=== PATIENT | female | born 1990 | race American Indian/Alaskan Native ===

== ENCOUNTER 2020-08-24 07:17 | Day surgery (SDC) | payer MEDICAID ==
--- NOTE | 2020-08-19 12:55 | History and Physical Report ---
History of Present Illness Date of examination: 08/24/20 Date of admission: 08/24/20 Chief complaint: desiring permanent sterilization History of present illness: 30 yo A4 c/b hx dysplasia (s/p cyrosurgery in 2018 and LEEPin 2019) and intermittent pelvic pain presenting for permanent sterilization. Completed childbearing and happy with current family size. Discussed non-permanent forms of contraception and declines. Past History Past Medical History: no pertinent history Past Surgical History: D&C (x4), other (cyrotherapy 2018, LEEP 2019) [employer] History: abnormal PAP smear (most recently negative) Family/Genetic History: none Social history: no significant social history - Obstetrical History : 6 Para: 2 Hx # Term Pregnancies: 2 Induced : 4 Number of Living Children: 2 Medications and Allergies Allergies Allergy/AdvReac Type Severity Reaction Status Date / Time No Known Allergies Allergy Unverified 08/19/20 11:56 Home Medications Medication Instructions Recorded Confirmed Last Taken Type No Known Home Medications [No 08/19/20 08/19/20 Unknown History Reported Home Medications] Review of Systems All systems: negative (expect HPI) - Physical Exam Cardiovascular: Regular rate Lungs: Positive: Clear to auscultation, Normal air movement Abdomen: Positive: normal appearance Results All other labs normal. 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 Defer management of patient's pelvic pain until after BTL. Patient expressed understanding.
[~2020-08-24 07:17] MED LIST: LACTATED RINGERS 1,000 ML IV SCH
[2020-08-24 08:42] LABS: Basophils % (Auto) 0.6 % (0.0-1.8); Eosinophils # (Auto) 0.1 K/mm3 (0.0-0.4); Eosinophils % (Auto) 2.2 % (0.0-4.3); Hematocrit 35.3 % (30.3-42.9); Hemoglobin 11.8 gm/dl (10.1-14.3); Lymphocytes # (Auto) 1.6 K/mm3 (1.2-5.4); Lymphocytes % (Auto) 27.1 % (13.4-35.0); Mean Corpuscular HGB Conc 34 % (30-34); Mean Corpuscular Volume 74 fl (79-97); Monocytes # (Auto) 0.4 K/mm3 (0.0-0.8); Monocytes % (Auto) 7.7 % (0.0-7.3); Platelet Count 191 K/mm3 (140-440); Red Blood Count 4.76 M/mm3 (3.65-5.03); Red Cell Distribution Width 13.9 % (13.2-15.2)
[2020-08-24] MEDS ORDERED: MAGNESIUM OXIDE 400 MG TAB PO NR (08:48)
[2020-08-24] MEDS ORDERED: ACETAMINOPHEN 500 MG TAB PO NR (08:48)
[2020-08-24] MEDS ORDERED: ONDANSETRON 4 MG/2 ML INJ IV PRN (08:49)
[2020-08-24] MEDS ORDERED: HYDROmorphone 1 MG/1 ML INJ IV PRN (08:49)
--- NOTE | 2020-08-24 08:50 | Anesthesia Day of Surgery ---
Anesthesia Day of Surgery - Day of Surgery Patient Examined: Yes Patient H&P Reviewed: Yes Patient is NPO: Yes
--- NOTE | 2020-08-24 08:50 | Anesthesia Consultation ---
Anesthesia Consult and Med Hx Date of service: 08/24/20 - Airway Anesthetic Teeth Evaluation: Good ROM Head & Neck: Adequate Mental/Hyoid Distance: Adequate Mallampati Class: Class I Intubation Access Assessment: Good - Pre-Operative Health Status ASA Pre-Surgery Classification: ASA1 Proposed Anesthetic Plan: General - Pulmonary Hx Smoking: No - Cardiovascular System Hx Hypertension: No - Central Nervous System Hx Psychiatric Problems: No - Gastrointestinal Hx Gastroesophageal Reflux Disease: No - Endocrine Hx Non-Insulin Dependent Diabetes: No - Hematic Hx Anemia: Yes (Past hx) Hx Sickle Cell Disease: No - Other Systems Hx Cancer: No
[2020-08-24] MEDS ORDERED: MIDAZOLAM 2 MG/2 ML INJ IV NR (08:52)
[2020-08-24] MEDS ORDERED: GABAPENTIN 300 MG CAP PO NR (09:00)
[2020-08-24] MEDS ORDERED: CELECOXIB 200 MG CAP PO NR (09:00)
[2020-08-24] MEDS ORDERED: ROCURONIUM 50 MG/5 ML INJ IV ONE (09:25)
[2020-08-24] MEDS ORDERED: ONDANSETRON 4 MG/2 ML INJ ONE (09:25)
[2020-08-24] MEDS ORDERED: LIDOCAINE MPF (2%) 20 MG/1 ML VIAL 5 ML ONE (09:25)
[2020-08-24] MEDS ORDERED: propofoL 200 MG/20 ML VIAL IV ONE (09:25)
[2020-08-24] MEDS ORDERED: dexAMETHasone 20 MG/5 ML VIAL ONE (09:25)
[2020-08-24] MEDS ORDERED: fentaNYL 100 MCG/2 ML INJ ONE ×2 (09:25→12:05)
[2020-08-24] MEDS ORDERED: BUPIVACAINE/PF (0.5%) 5 MG/1 ML 30 ML VIAL INFILTRATI ONE (09:48)
[2020-08-24] MEDS ORDERED: LACTATED RINGERS 1,000 ML ONE (10:11)
[2020-08-24] MEDS ORDERED: SODIUM CHLORIDE 0.9% IRR 1,500 ML BOTTLE IR ONE (10:35)
[2020-08-24] MEDS ORDERED: KETOROLAC 30 MG/1 ML INJ ONE (10:53)
[2020-08-24] MEDS ORDERED: oxyCODONE /ACETAMINOPHEN 5-325MG TAB PO PRN (10:54)
[2020-08-24] MEDS ORDERED: IBUPROFEN 600 MG TAB PO PRN (10:54)
--- NOTE | 2020-08-24 10:57 | Procedure Note ---
Date of procedure: 08/24/20 Pre-op diagnosis: desiring permanent sterilization Post-op diagnosis: other (5 cm left ovarian cyst) Procedure: Preoperative diagnosis: Multiparous woman desiring permanent sterilization Postoperative diagnosis: Multiparous woman desiring permanent sterilization, 5 cm left ovarian cyst Operation performed: 1. Exam under anesthesia 2. Diagnostic laparoscopy 3. Laparoscopic bilateral tubal ligation with Filshie clips Surgeon: Aleah Mohr Anesthesia: General endotracheal anesthesia Estimated blood loss 10 cc IVF 1100 cc UOP 100 cc Pathology Specimens: none Complications none Disposition and condition: To the PACU in stable condition and then discharged home Findings: 1. Small, mobile, anteverted uterus without adnexal masses on EUA 2. Normal uterus and bilateral tubes on laparoscopy 3. Normal right ovary 4. 5 cm ovarian cyst noted on left ovary, 3. Normal-appearing liver, gallbladder next Statement of medical necessity 30 yo G 6 P 2 A4 who desires permanent sterilization. Patient with a known history of intermittent pelvic pain, however given that she did not complete initial work-up including gynecology ultrasound, the decision was made to forego management of pelvic pain until after this sterilization procedure. This was discussed with patient prior to the procedure and she expressed understanding. The patient was extensively counseled and offered reversal methods of contraception but declined. She was informed about the procedure failure rates and regret rates under the age of 30 years. The procedure risk, benefits, indications and alternatives were thoroughly reviewed with patient. Description of operation: After obtaining informed consent, the patient was taken to the operating room where satisfactory general endotracheal anesthesia was established. The patient was placed in modified supine position using Grayson stirrups ensuring proper positioning and cushioning to avoid nerve injury. An exam under anesthesia was performed with the findings noted above. She was prepped and draped in the usual sterile fashion. Straight catheterization of the bladder was performed. A Vcare manipulator was placed in order to aid in uterine manipulation. Attention was directed to the abdomen. A 5 mm incision w as placed supraumbilically. With the patient horizontal, the camera and 5 mm trocar were introduced into the abdominal cavity while tenting up the abdominal wall with towel clips in order to gain entry into the abdominal cavity. Intraperitoneal placement was confirmed with initial pressure of 20 mmHg on insufflation. Pneumoperitoneum was obtained in the placed and the patient was placed in Trendelenburg position. A midline suprapubic incision was made with a scalpel and a 8 mm trocar was placed under direct visualization. The blunt grasper was used in order to inspect the pelvis with the findings noted above. The fallopian tubes were identified and followed out to the fimbriated ends. The entire mid isthmic girth of the left tube was grasped perpendicularly without difficulty with applicator. The clip was applied and good applied with tubal blanching was noted. There was no bleeding in the mesosalpinx. The same procedure was performed on contralateral side. This procedure was completed x3 on the left tube and x2 on the right with a result of 3 Filshie clips on the left tube and 2 filshie clips on the right tube. All instruments were removed. Suprapubic trocar was removed under direct verbalization with port site hemostasis noted. The pneumoperitoneum was reduced and the umbilical trocar was removed under direct visitation while with withdrawing the laparoscope. The patient was returned to horizontal dorsal supine position. The skin incisions were closed with 2-0 Vicryl in a subcuticular fashion and dressed with Dermabond. The Vcare manipulator was removed from vagina. The patient tolerated the procedure well was extubated without difficulty and transferred recovery room in good condition. Sponge, needle instrument counts were correct x2. There is no surgical or anesthetic complications. Anesthesia: GETA Surgeon: ALEAH MOHR JR Estimated blood loss: other (10cc) IV fluids: 1,100 Urine output: 100 Pathology: none Condition: stable Disposition: same day
[2020-08-24] MEDS ORDERED: GLYCOPYRROLATE 0.4 MG/2 ML INJ ONE (11:03)
[2020-08-24] MEDS ORDERED: NEOSTIGMINE 10MG/10 ML INJ MDV ONE (11:03)
[2020-08-24] MEDS: HYDROmorphone 1 MG/1 ML INJ IV PRN ×4 (11:06→11:38)
[2020-08-24] MEDS ORDERED: SIMETHICONE 80 MG CHEW TAB ONE (11:34)
[2020-08-24] MEDS ORDERED: SIMETHICONE 80 MG CHEW TAB PO ONE (11:34)
[2020-08-24] MEDS ORDERED: fentaNYL 100 MCG/2 ML INJ IV ONE (12:07)
[2020-08-24 13:31] VITALS: BP 129/85
--- NOTE | 2020-08-24 19:05 | Post Anesthesia Evaluation ---
- Post Anesthesia Evaluation Patient Participated: Yes Airway Patent: Yes Stable Respiratory Function: Yes Nausea/Vomiting: No Temp > 96.8F: Yes Pain Manageable: Yes Adequeate Hydration: Yes Anesthesia Complications: No Block Receding Appropriately: Not Applicable Patient on Ventilator: No
== END 2020-08-24 07:18 | disposition home or self-care (01) ==
LOC: OR 07:17
PROVIDERS: ATTEND Obstetrics & Gynecology
DX: Z30.2 Encounter for sterilization (principal); Z79.899 Other long term (current) drug therapy; Z98.890 Other specified postprocedural states; Z86.2 Personal history of diseases of the blood and blood-forming organs and certain disorders involving the immune mechanism
CPT/HCPCS: 36415; 58671; 81025; 85025; 86850; 86900; 86901; J1100; J1170; J1885; J2250; J2405; J2704; J2710; J3010; J7120